=== PATIENT | female | born 1955 | race Caucasian/White ===

== ENCOUNTER 2018-07-16 11:44 | Emergency (ER) | payer MEDICARE, OTHER, SELFPAY ==
[2018-07-16 12:00] VITALS: BP 120/77; PULSE 88; RESP 18; TEMP 36.7; O2SAT 98
--- NOTE | 2018-07-16 12:13 | DI.RAD.S_ITS ---
PROCEDURE: XR TIBIA FUBULA RT 2V INDICATIONS: deformity TECHNIQUE: 2 views of the tibia and fibula were acquired. COMPARISON: None. FINDINGS: Bones: No acute fracture or dislocation is evident involving the right tibia or fibula. There is focal cortical irregularity identified involving the medial aspect of the proximal tibial diametaphysis, which has a somewhat unusual appearance and is not adequately evaluated on this study. Plantar and Achilles spurs and shunt present. Soft tissues: No suspicious soft tissue calcifications or masses. IMPRESSION: 1. No acute fracture of the right tibia or fibula. 2. Cortical irregularity along the medial proximal tibial diametaphysis may represent an osteochondroma. Other etiologies cannot be excluded. A dedicated CT imaging would be of value, which may be performed on a nonemergent basis. Dictated by: Venkatesh Dexter M.D. on 07/16/2018 at 11:27 Approved by: Venkatesh Dexter M.D. on 07/16/2018 at 11:29
[2018-07-16 13:37] VITALS: BP 141/76; PULSE 87; RESP 16; O2SAT 96
--- NOTE | 2018-07-16 13:47 | ED.LOWEXIN ---
HPI - Extremity Injury (Lower) <Heather Victoria PA-C - Last Filed: 07/16/18 16:53> General Chief Complaint: Extremity Injury, Lower Stated Complaint: Dropped steel beam on right leg Time Seen by Provider: 07/16/18 14:06 Source: patient Mode of arrival: ambulatory Limitations: no limitations History of Present Illness HPI Narrative: This healthy 63-year-old female is at and the states that they were moving fell on the floor and bounced hitting her right fragoso area. She states that she had severe pain just after and was not able to bear weight. This happened several hours ago. She states that pain has significantly improved since, still sore to touch. She denies any other injury or fall. Last tetanus vaccine was less than a year ago. She did not take any pain medicine at home. Related Data Home Medications Medication Instructions Recorded Confirmed AMINOBENZOIC ACID/BIOTIN/CA (#B 1 cap PO Q DAY #0 02/12/11 COMPLEX) Ascorbic Acid/Bioflavonoid 1 tab PO Q DAY #0 02/12/11 (#VITAMIN C) Fish Oil (#FISH OIL) 1 iu PO Q DAY #0 02/12/11 MULTIVITAMIN (#MULTIPLE VITAMINS) 1 cap PO 4-5 X/WK #0 02/12/11 BORON/CA/CU/MG/MN/VIT D/ZINC 1 tab PO Q DAY #0 04/04/12 (#CALCIUM 600 + MINERALS) Allergies Allergy/AdvReac Type Severity Reaction Status Date / Time erythromycin base Allergy Rash Verified 07/16/18 12:10 Review of Systems <Heather Victoria PA-C - Last Filed: 07/16/18 16:53> Review of Systems ROS Unobtainable: All systems reviewed & are unremarkable except as noted in HPI and below PFSH <Heather Victoria PA-C - Last Filed: 07/16/18 16:53> Medical History (Updated 07/16/18 @ 14:26 by Heather Victoria PA-C) Osteoporosis (Chronic) Surgical History (Updated 07/16/18 @ 14:19 by Heather Victoria PA-C) History of elective (Resolved) Social History Smoking Status: Current every day smoker Social History Smoking Status: Current every day smoker Exam <Heather Victoria PA-C - Last Filed: 07/16/18 16:53> Narrative Exam Narrative: GENERAL APPEARANCE: Patient sitting comfortably, in no distress. LUNGS: Clear to auscultation bilaterally. HEART: Rate and rhythm regular without murmur, normal S1 and S2, no S3 or S4. MUSCULOSKELETAL: Right lower extremity no tenderness over the knee or ankle joint, no tenderness over the foot or toes. She has full range of motion of the knee and ankle. She has localized fusion and tenderness over the inferior fragoso. She is able to stand up and bear full weight on the right. DERMATOLOGIC: Right fragoso noted to have some ecchymoses and edema, localized, with a central shallow scabbed linear abrasion, no active bleeding NEUROVASCULAR: Right lower extremity toes are warm and pink with brisk cap refill, sensation grossly intact Initial Vital Signs Initial Vital Signs: Vital Signs Temperature 98.1 F 07/16/18 12:00 Pulse Rate 88 07/16/18 12:00 Respiratory Rate 18 07/16/18 12:00 Blood Pressure 120/77 07/16/18 12:00 Pulse Oximetry 98 07/16/18 12:00 <DO Dionte Rubalcava Last Filed: 07/16/18 18:55> Initial Vital Signs Initial Vital Signs: Vital Signs Temperature 98.1 F 07/16/18 12:00 Pulse Rate 88 07/16/18 12:00 Respiratory Rate 18 07/16/18 12:00 Blood Pressure 120/77 07/16/18 12:00 Pulse Oximetry 98 07/16/18 12:00 Course <Heather Victoria PA-C - Last Filed: 07/16/18 16:53> Orders Ordered: ED Orders 07/16/18 12:13 XR tibia fibula RT 2V Stat Vital Signs - 8 hr 07/16/18 12:00 07/16/18 13:37 07/16/18 14:23 Temperature 98.1 F Pulse Rate 88 87 86 Respiratory Rate 18 16 18 Blood Pressure 120/77 Blood Pressure [Left Arm] 141/76 H 125/76 Pulse Oximetry 98 96 95 <DO Dionte Rubalcava Last Filed: 07/16/18 18:55> Orders Ordered: ED Orders 07/16/18 12:13 XR tibia fibula RT 2V Stat Vital Signs - 8 hr 07/16/18 12:00 07/16/18 13:37 07/16/18 14:23 Temperature 98.1 F Pulse Rate 88 87 86 Respiratory Rate 18 16 18 Blood Pressure 120/77 Blood Pressure [Left Arm] 141/76 H 125/76 Pulse Oximetry 98 96 95 MDM - Extremity Injury (Lower) <Heather Victoria PA-C - Last Filed: 07/16/18 16:53> Imaging Data tib fib: Radiologist's impression: [address] [address] XRay Report Signed Patient: Mary Lou Hunter KMR#: [id number] : 3Acct:[id number] Age/Sex: 63 / FDate of Service: 07/16/18 Loc: ED Accession Number: [id number] Procedure: XR tibia fibula RT 2V Ordering Provider: Rebeca Umaña D.O. PROCEDURE: XR TIBIA FUBULA RT 2V INDICATIONS: deformity TECHNIQUE: 2 views of the tibia and fibula were acquired. COMPARISON: None. FINDINGS: Bones: No acute fracture or dislocation is evident involving the right tibia or fibula. There is focal cortical irregularity identified involving the medial aspect of the proximal tibial diametaphysis, which has a somewhat unusual appearance and is not adequately evaluated on this study. Plantar and Achilles spurs and shunt present. Soft tissues: No suspicious soft tissue calcifications or masses. IMPRESSION: 1. No acute fracture of the right tibia or fibula. 2. Cortical irregularity along the medial proximal tibial diametaphysis may represent an osteochondroma. Other etiologies cannot be excluded. A dedicated CT imaging would be of value, which may be performed on a nonemergent basis. Dictated by: Venkatesh Dexter M.D. on 07/16/2018 at 11:27 Approved by: Venkatesh Dexter M.D. on 07/16/2018 at 11:29 Discharge Plan Departure Patient Disposition: Home Clinical Impression: Contusion of lower leg Qualifiers: Encounter type: initial encounter Laterality: right Qualified Code(s): S80.11XA - Contusion of right lower leg, initial encounter Discharge Date/Time: 07/16/18 14:57 Interventions: ED Discharge Assessment Last Done: 07/16/18 14:56 Instructions: DI for Leg Pain Activity Restrictions/Additional Instructions: Since you are feeling better and you can bear weight on the leg, you can monitor at home. Please use ice and elevate this afternoon. It may be helpful to take ibuprofen or Aleve for a few days to help with the inflammation and swelling. You can use Tylenol as well to help with pain but this does not have anti-inflammatory activity. Please try wearing the compression bandage since this has some hematoma (swelling and bruising in the soft tissues under the skin) as this may be helpful for pain and protection while you are moving. Return if you have any acutely worsening symptoms. Otherwise, as we talked about, please follow-up with your PCP in the next week or 2 to review your x-ray, which showed some irregularity in the bone in your lower leg that may be chronic, but will probably need further imaging studies since you have not had old x-rays of this area before to compare to. Prescriptions: No Action AMINOBENZOIC ACID/BIOTIN/CA (#B COMPLEX) 1 cap PO Q DAY Qty: 0 RF: 0 Ascorbic Acid/Bioflavonoid (#VITAMIN C) 1 tab PO Q DAY Qty: 0 RF: 0 Fish Oil (#FISH OIL) 1 iu PO Q DAY Qty: 0 RF: 0 MULTIVITAMIN (#MULTIPLE VITAMINS) 1 cap PO 4-5 X/WK Qty: 0 RF: 0 BORON/CA/CU/MG/MN/VIT D/ZINC (#CALCIUM 600 + MINERALS) 1 tab PO Q DAY Qty: 0 RF: 0 Referrals: Kaylie Herrera [Other] <Rebeca Umaña DO - Last Filed: 07/16/18 18:55> [facility] Attending Rajinder Attestation: I was immediately available in the department for consultation. Documentation has been reviewed. I agree with assessment and plan.
[2018-07-16 14:23] VITALS: BP 125/76; PULSE 86; RESP 18; O2SAT 95
== END 2018-07-16 14:57 | disposition home or self-care (01) ==
PROVIDERS: Emergency Provider Internal Medicine
DX: S80.11XA Contusion of right lower leg, initial encounter (principal); W20.8XXA Other cause of strike by thrown, projected or falling object, initial encounter
CPT/HCPCS: 73590; 99282; 99283

== ENCOUNTER 2020-09-26 17:38 | Emergency (ER) | payer MEDICARE, OTHER, SELFPAY ==
[2020-09-26 18:05] VITALS: PULSE 96; RESP 18; TEMP 36.4; O2SAT 98; BMI 25.0
== END 2020-09-26 21:33 | disposition left against medical advice (07) ==
PROVIDERS: Emergency Provider Emergency Medicine
CPT/HCPCS: 99281

== ENCOUNTER → 2022-08-02 15:25 | Outpatient (CLI) | payer MEDICARE, OTHER, SELFPAY | PROVIDERS: Visit Provider Registered Nurse | DX: R10.9 Unspecified abdominal pain (principal) | CPT/HCPCS: 87086 ==

== ENCOUNTER → 2024-05-06 15:16 | Outpatient (CLI) | payer MEDICARE, OTHER, SELFPAY ==
[2024-05-06 16:28] LABS: Influenza A - CEPHEID Flu A NEGATIVE (NEGATIVE); Influenza B - CEPHEID Flu B NEGATIVE (NEGATIVE); Respiratory Syncytial Virus Negative (Negative)
[2024-05-06 16:35] LABS: COVID-19 CEPHEID 4-PLEX PCR Negative (Negative)
== END ==
PROVIDERS: Visit Provider Nurse Practitioner Family
DX: R52 Pain, unspecified (principal); R05.9 Cough, unspecified; R59.9 Enlarged lymph nodes, unspecified
CPT/HCPCS: 0241U